=== PATIENT | female | born 1995 | race Caucasian/White ===

== ENCOUNTER 2018-03-26 17:40 | Inpatient (IN) | payer OTHER ==
[2018-03-26] MEDS ORDERED: AMPICILLIN - 1 GM in SODIUM CHLORIDE 100 ML IVPB ONE (18:15)
[2018-03-26] MEDS ORDERED: LACTATED RINGERS SOLUTION 1,000 ML IV SCH (18:45)
[2018-03-26 18:46] VITALS: BMI 32.2
[2018-03-26] MEDS ORDERED: AMPICILLIN - 2 GM in SODIUM CHLORIDE 100 ML IVPB ONE (19:00)
[2018-03-26] MEDS ORDERED: PROMETHAZINE HCL 25 MG/1 ML VIAL IVPUSH ONE (20:15)
[2018-03-26] MEDS ORDERED: ELECTROLYTE-148 SOLN 1,000 ML IV SCH (20:15)
[2018-03-26] MEDS ORDERED: BUTORPHANOL TARTRATE 1 MG/ML VIAL IVPB ONE (20:15)
--- NOTE | 2018-03-26 20:26 | HP ---
Past Medical History - Admission Chief Complaint: leaking fluid History of Present Illness: 22 y/o with SIUP at 40.3 weeks here with complaints of leaking fluid. Thinks she began leaking last night at approx 11pm. Occ cramping, no painful contractions. +FM. Pt is GBS positive. History Source: Patient, Medical Record - Past Medical History Cardiovascular: No: HTN, [place] Hepatobiliary: No: Hepatitis B, Hepatitis C ...: 1 ...Para: 0 ...LMP: 07/01/17 ... Weeks Gestation by Dates: 40.3 ...EDC by Dates: 03/23/18 ...EDC by Sono: 03/23/18 Heme/Onc: No: Anemia Infectious Disease: No: HIV, MRSA, STD's Psych: No: Anxiety, Bipolar, Depression Endocrine: No: Diabetes Mellitus, Hyperthyroidism - Past Surgical History Past Surgical History: Yes: None Hx Myomectomy: No Hx Transabdominal Cerclage: No - Smoking History Smoking history: Never smoked - Alcohol/Substance Use Hx Alcohol Use: No History of Substance Use: reports: None - Social History Usual Living Arrangement: Yes: With Spouse History of Recent Travel: No Home Medications - Allergies Allergies/Adverse Reactions: Allergies Allergy/AdvReac Type Severity Reaction Status Date / Time No Known Drug Allergies Allergy Verified 03/26/18 18:37 - Home Medications Home Medications: Ambulatory Orders Iron 1 tab PO DAILY 03/26/18 Vitamins (Sj[facility]) - 1 tab PO DAILY 03/26/18 Physical Exam - Maternity Vital Signs: Vital Signs Temperature 98.3 F 03/26/18 18:38 Pulse Rate 82 03/26/18 18:38 Respiratory Rate 20 03/26/18 18:38 Blood Pressure 108/54 03/26/18 18:38 O2 Sat by Pulse Oximetry (%) Constitutional: Yes: Well Nourished, No Distress, Calm HENT: Yes: Normocephalic Neck: Yes: Trachea Midline Cardiovascular: Yes: Regular Rate and Rhythm Lungs: Clear to auscultation - Abdominal Exam/OB Number of Fetuses: Single Presentation: Vertex Contractions: Yes Regularity: Irregular Intensity: Mild Monitor Mode: External Category: I Accelerations: Uniform Decelerations: None - Vaginal Exam/OB Vaginal Bleediing: No Dilatation (cm): 3 Effacement (%): 70 Amniotic Membrane Status: Ruptured Presentation: Vertex/Position Station: -1 - Physical Exam Psychiatric: Yes: Alert, Oriented Hemorrhage Risk Assessment - Risk Factors Medium Risk Factors: Yes: None High Risk Factors: Yes: None Risk Score: 1 Risk Level: Medium Risk Problem List - Problems (1) Rupture of membranes with clear amniotic fluid Code(s): O42.019 - PRETRM SUSAN ROM, ONSET LABOR W/N 24 HOURS OF RUPT, UNSP TRI (2) GBS (group B Streptococcus carrier), +RV culture, currently Code(s): O99.820 - STREPTOCOCCUS B CARRIER STATE COMPLICATING Assessment/Plan 22 y/o with SIUP at 40.3 weeks, PROM - AFVSS - FHTS cat 1 - PROM, will start pitocin - GBS positive, continue antibiotic prophylaxis
[2018-03-26] MEDS ORDERED: OXYTOCIN 30 UNITS in 0.9% NS 30 UNIT/500 ML INFUS.BAG IVPB ONE (20:30)
[2018-03-26 20:41] LABS: BASO % 0.4 % (0-2.0); EOS % 0.8 % (0-4.5); HEMATOCRIT 34.7 % (32.4-45.2); LYMPH % 18.4 % (8-40); MCH 33.6 pg (25.7-33.7); MCHC 34.7 g/dl (32.0-36.0); MEAN PLT VOLUME 9.3 fl (7.5-11.1); MONO % 5.5 % (3.8-10.2); NEUT % 74.9 % (42.8-82.8); PLATELET COUNT 185 K/MM3 (134-434); RBC 3.57 M/mm3 (3.60-5.2); RDW 12.4 % (11.6-15.6); WHITE BLOOD COUNT 12.1 K/mm3 (4.0-10.0)
[2018-03-26] MEDS ORDERED: OXYTOCIN 30 UNITS in 0.9% NS 30 UNIT/500 ML INFUS.BAG IVPB SCH (20:45)
[2018-03-26 20:57] LABS: INR 1.05 (0.82-1.09); PROTHROMBIN TIME (PATIENT) 11.9 SEC (9.7-13.0)
[2018-03-26 21:00] LABS: ACTIVATED PTT 27.8 SECONDS (26.9-34.4)
[2018-03-26 21:03] LABS: ANION GAP 6 (8-16); BLOOD UREA NITROGEN 9 mg/dL (7-18); CALCIUM 9.1 mg/dL (8.5-10.1); CHLORIDE 107 mmol/L (98-107); CO2 25 mmol/L (21-32); CREATININE 0.4 mg/dL (0.55-1.02); GLUCOSE,RANDOM 72 mg/dL (74-106); POTASSIUM 3.8 mmol/L (3.5-5.1); SODIUM 138 mmol/L (136-145)
[2018-03-26] MEDS: AMPICILLIN - 1 GM in SODIUM CHLORIDE 100 ML IVPB SCH (22:15)
[2018-03-26] MEDS ORDERED: AMPICILLIN SODIUM 1 GM VIAL ONE (22:51)
[2018-03-27] MEDS ORDERED: BUTORPHANOL TARTRATE 1 MG/ML VIAL ONE ×2 (01:06)
[2018-03-27] MEDS ORDERED: PROMETHAZINE HCL 25 MG/1 ML VIAL ONE (01:07)
[2018-03-27] MEDS ORDERED: AMPICILLIN SODIUM 1 GM VIAL ONE (02:14)
[2018-03-27] MEDS: AMPICILLIN - 1 GM in SODIUM CHLORIDE 100 ML IVPB SCH (02:15)
[2018-03-27] MEDS ORDERED: OXYTOCIN 20 UNITS in 0.9% NS 20 UNIT/1,000 ML INFUS.BAG IV ONE ×3 (02:37→05:20)
[2018-03-27] MEDS ORDERED: LIDOCAINE HCL 1% PRESERVATIVE FREE - 30ML VIAL ONE (02:38)
[2018-03-27] MEDS ORDERED: MISOPROSTOL 100 MCG TABLET NR ONE (03:00)
--- NOTE | 2018-03-27 03:28 | PN ---
Delivery - Delivery Vaginal Delivery: No Problems Type of Anesthesia: None (IV stadol/phenergan given during labor) Episiotomy/Laceration: 1st degree EBL (cc): 400 Delivery, Single - Stages of Labor Date of Delivery: 03/27/18 Time of Delivery: 02:57 Date Placenta Delivered: 03/27/18 Time Placenta Delivered: 03:00 Placenta: Yes: Spontaneous - Condition of Hybrid Derivatives Trader/Internet Programmer Present: No Gender: Female Position: Left, OA - 1 Minute Total Score: 9 5 Minutes Total Score: 9 - Feeding Plan Initial Plan: Exclusive throughout hospitalization Remarks - Remarks Remarks: Uncomplicated of baby girl from PATTY position anterior shoulder (right) delivered with ease along with remainder of mouth and nose suctioned cord clamped and cut placenta delivered in tact, spontaneously and with a 3VC 1st degree laceration repaired wtih 2-0 chromic EBL 400cc 800mcg cytotec given rectally post delivery sponge and needle count correct after delivery mom stable baby to well baby nursery
[2018-03-27] MEDS ORDERED: IBUPROFEN 600 MG TABLET (FP) PO PRN (03:29)
[2018-03-27] MEDS ORDERED: METHYLERGONOVINE MALEATE 0.2 MG/1 ML AMP IM PRN (03:29)
[2018-03-27] MEDS ORDERED: BISACODYL 10 MG SUPP.RECT RC PRN (03:29)
[2018-03-27] MEDS ORDERED: ACETAMINOPHEN 325 MG TABLET (FP) PO PRN (03:29)
[2018-03-27] MEDS ORDERED: BENZOCAINE 28 GM HEMORRHOIDAL OINTMENT TP PRN (03:29)
[2018-03-27] MEDS ORDERED: BENZOCAINE 20% 57 GM BOTTLE TP PRN (03:29)
[2018-03-27] MEDS ORDERED: WITCH HAZEL 50% (TUCKS) 40 PAD/JAR PAD TP PRN (03:29)
[2018-03-27] MEDS ORDERED: OXYTOCIN 20 UNITS in 0.9% NS 20 UNIT/1,000 ML INFUS.BAG IV SCH (03:30)
[2018-03-27] MEDS: FERROUS SO4 325 MG TABLET (FP) PO SCH ×3 (09:17→17:04)
[2018-03-27] MEDS: PRENATAL VITAMINS W/ FOLIC ACID TABLET (FP) PO SCH (09:17)
[2018-03-28 08:12] LABS: BASO % 0.3 % (0-2.0); HEMOGLOBIN 10.5 GM/dL (10.7-15.3); MCH 34.5 pg (25.7-33.7); MEAN CELL VOLUME 98.4 fl (80-96); MEAN PLT VOLUME 9.6 fl (7.5-11.1); MONO % 6.2 % (3.8-10.2); NEUT % 68.5 % (42.8-82.8); PLATELET COUNT 145 K/MM3 (134-434); RBC 3.05 M/mm3 (3.60-5.2); RDW 12.5 % (11.6-15.6); WHITE BLOOD COUNT 10.2 K/mm3 (4.0-10.0)
[2018-03-28] MEDS: FERROUS SO4 325 MG TABLET (FP) PO SCH ×3 (08:12→17:14)
--- NOTE | 2018-03-28 08:58 | PN ---
Post Progress Note Type of Delivery: Vital Signs: Vital Signs Temperature 98.5 F 03/28/18 07:10 Pulse Rate 72 03/28/18 07:10 Respiratory Rate 20 03/28/18 07:10 Blood Pressure 96/58 03/28/18 07:10 O2 Sat by Pulse Oximetry (%) Uterus: Yes: Fundus Firm, Non-tender Abdomen/GI: Yes: Abdomen soft, Passing flatus, Tolerating PO. No: Tender Lochia: Yes: Rubra Lochia, amount: Small Extremities: Yes: Edema (trace edema b/l ) Perineum: Yes: Laceration (1st degree laceration healing well, - repaired) Activity: Ambulating - Labs Labs: CBC WBC 10.2 K/mm3 (4.0-10.0) H 03/28/18 06:50 RBC 3.05 M/mm3 (3.60-5.2) L 03/28/18 06:50 Hgb 10.5 GM/dL (10.7-15.3) L D 03/28/18 06:50 Hct 30.0 % (32.4-45.2) L 03/28/18 06:50 MCV 98.4 fl (80-96) H 03/28/18 06:50 MCH 34.5 pg (25.7-33.7) H 03/28/18 06:50 MCHC 35.0 g/dl (32.0-36.0) 03/28/18 06:50 RDW 12.5 % (11.6-15.6) 03/28/18 06:50 Plt Count 145 K/MM3 (134-434) D 03/28/18 06:50 MPV 9.6 fl (7.5-11.1) 03/28/18 06:50 Neutrophils % 68.5 % (42.8-82.8) 03/28/18 06:50 Lymphocytes % 24.0 % (8-40) D 03/28/18 06:50 Monocytes % 6.2 % (3.8-10.2) 03/28/18 06:50 Eosinophils % 1.0 % (0-4.5) 03/28/18 06:50 Basophils % 0.3 % (0-2.0) 03/28/18 06:50 Problem List - Problems (1) Rupture of membranes with clear amniotic fluid Code(s): O42.019 - PRETRM SUSAN ROM, ONSET LABOR W/N 24 HOURS OF RUPT, UNSP TRI (2) GBS (group B Streptococcus carrier), +RV culture, currently Code(s): O99.820 - STREPTOCOCCUS B CARRIER STATE COMPLICATING Assessment/Plan 22 y/o GPPD#1 s/p normal - AFVSS - CBC pending - regular diet, ambulation PO pain meds - routine care
[2018-03-28] MEDS: PRENATAL VITAMINS W/ FOLIC ACID TABLET (FP) PO SCH (09:24)
[2018-03-28] MEDS ORDERED: SENNOSIDES/DOCUSATE COMBO (SENNA PLUS) TABLET (UD) PO PRN (22:00)
[2018-03-29] MEDS: FERROUS SO4 325 MG TABLET (FP) PO SCH ×2 (08:49→12:15)
--- NOTE | 2018-03-29 08:49 | PN ---
Post Progress Note Type of Delivery: Vital Signs: Vital Signs Temperature 98.5 F 03/28/18 22:00 Pulse Rate 84 03/28/18 22:00 Respiratory Rate 20 03/28/18 22:00 Blood Pressure 119/63 03/28/18 22:00 O2 Sat by Pulse Oximetry (%) Breast Exam: Yes: Soft Uterus: Yes: Fundus Firm Abdomen/GI: Yes: Abdomen soft, Passing flatus Lochia: Yes: Serosa Lochia, amount: Moderate Extremities: Yes: Calves non-tender Perineum: Yes: Laceration Activity: Ambulating - Labs Labs: CBC WBC 10.2 K/mm3 (4.0-10.0) H 03/28/18 06:50 RBC 3.05 M/mm3 (3.60-5.2) L 03/28/18 06:50 Hgb 10.5 GM/dL (10.7-15.3) L D 03/28/18 06:50 Hct 30.0 % (32.4-45.2) L 03/28/18 06:50 MCV 98.4 fl (80-96) H 03/28/18 06:50 MCH 34.5 pg (25.7-33.7) H 03/28/18 06:50 MCHC 35.0 g/dl (32.0-36.0) 03/28/18 06:50 RDW 12.5 % (11.6-15.6) 03/28/18 06:50 Plt Count 145 K/MM3 (134-434) D 03/28/18 06:50 MPV 9.6 fl (7.5-11.1) 03/28/18 06:50 Neutrophils % 68.5 % (42.8-82.8) 03/28/18 06:50 Lymphocytes % 24.0 % (8-40) D 03/28/18 06:50 Monocytes % 6.2 % (3.8-10.2) 03/28/18 06:50 Eosinophils % 1.0 % (0-4.5) 03/28/18 06:50 Basophils % 0.3 % (0-2.0) 03/28/18 06:50 Other Findings, Remarks: condition stable discharge home f/u in 4 weeks continue vitamins
[2018-03-29] MEDS: PRENATAL VITAMINS W/ FOLIC ACID TABLET (FP) PO SCH (09:39)
[2018-03-29 11:21] VITALS: BP 103/63; PULSE 69; TEMP 98.2
== END 2018-03-29 13:07 | disposition home or self-care (01) | DRG 560 ==
LOC: JDEL 17:40 → JLDR 18:10 → J3W 03-27 06:35
PROVIDERS: ADMIT Obstetrics & Gynecology; ATTEND Obstetrics & Gynecology
PROC: 10E0XZZ Delivery of Products of Conception, External Approach (ICD-10-PCS; principal; 2018-03-27)
PROC: 0HQ9XZZ Repair Perineum Skin, External Approach (ICD-10-PCS; 2018-03-27)
DX: O42.02 Full-term premature rupture of membranes, onset of labor within 24 hours of rupture (principal); O48.0 Post-term pregnancy; O99.824 Streptococcus B carrier state complicating childbirth; O70.0 First degree perineal laceration during delivery; Z3A.40 40 weeks gestation of pregnancy; Z37.0 Single live birth
CPT/HCPCS: 36415; 59409; 80048; 85025; 85610; 85730; 86593; 86850; 86900; 86901